=== PATIENT | female | born 1985 | race African-American/Black ===

== ENCOUNTER 2016-09-24 03:11 | Emergency (ER) | payer BC ==
[2016-09-24 03:19] VITALS: RESP 18
[2016-09-24] MEDS ORDERED: methylPREDNISolone SOD SUCCI 125 MG/2 ML VIAL IV STA (03:25)
[2016-09-24] MEDS ORDERED: diphenhydrAMINE 50 MG/ML 1 ML VIAL IVP STA ×2 (03:25→03:26)
[2016-09-24] MEDS ORDERED: FAMOTIDINE 20 MG/2 ML VIAL IV STA (03:25)
[2016-09-24] MEDS ORDERED: EPINEPHrine 1 MG/ML 1 ML AMP SQ STA (03:25)
--- NOTE | 2016-09-24 04:03 | ED ---
Allergic Reaction HPI - General Chief complaint: Allergic Reaction Stated complaint: Alergic reaction Time Seen by Provider: 09/24/16 03:21 Source: patient, RN notes reviewed, old records reviewed Mode of arrival: ambulatory Limitations: no limitations - History of Present Illness Initial Comments: This is a pleasant 31-year-old female presenting to the emergency department with chief complaint of ALLERGIC reaction. Patient reports that she's been seen and treated for ALLERGIC reactions for the past few days, [facility]. Patient reports that she's not sure what it is that she is down at her visits from laundry detergent. She reports that she was washing her clothes and had a bit of the laundry detergent touch her lip. She reports that this time her lower lip started to swell. Patient denies any difficulty breathing or swelling of the tongue. She denies any nausea or vomiting. Patient reports that she took 50 mg of Benadryl 2 hours prior to arriving. She also took Pepcid. She is currently on steroids. - Related Data Home Medications Medication Instructions Recorded Confirmed FLUoxetine HCL [PROzac] 20 mg PO DAILY 09/28/16 09/28/16 traZODone HCL 50 - 100 mg PO HS 09/28/16 09/28/16 Previous Rx's Medication Instructions Recorded EPINEPHrine (Auto Inject) [Epipen] 0.3 mg IM ONCE PRN #2 syringe 09/24/16 Allergies Allergy/AdvReac Type Severity Reaction Status Date / Time shellfish derived [Shellfish] Allergy Severe Rash/Hives Verified 09/29/16 08:39 Review of Systems ROS Statement: Those systems with pertinent positive or pertinent negative responses have been documented in the HPI. ROS Other: All systems not noted in ROS Statement are negative. Past Medical History Past Medical History: No Reported History History of Any Multi-Drug Resistant Organisms: None Reported Past Surgical History: No Surgical Hx Reported Past Psychological History: Depression Smoking Status: Never smoker Past Alcohol Use History: None Reported Past Drug Use History: None Reported General Exam - General Exam Comments Initial Comments: This is a pleasant 31-year-old female. No acute distress. Limitations: no limitations General appearance: alert, in no apparent distress Head exam: Present: atraumatic, normocephalic, normal inspection Eye exam: Present: normal appearance, PERRL, EOMI. Absent: scleral icterus, conjunctival injection, periorbital swelling ENT exam: Present: normal exam, mucous membranes moist, other (Patient has significant swelling of the lower lip.) Neck exam: Present: normal inspection. Absent: tenderness, meningismus, lymphadenopathy Respiratory exam: Present: normal lung sounds bilaterally. Absent: respiratory distress, wheezes, rales, rhonchi, stridor Cardiovascular Exam: Present: regular rate, normal rhythm, normal heart sounds. Absent: systolic murmur, diastolic murmur, rubs, gallop, clicks GI/Abdominal exam: Present: soft, normal bowel sounds. Absent: distended, tenderness, guarding, rebound, rigid Extremities exam: Present: normal inspection, full ROM, normal capillary refill. Absent: tenderness, pedal edema, joint swelling, calf tenderness Back exam: Present: normal inspection Neurological exam: Present: alert, oriented X3, CN II-XII intact Psychiatric exam: Present: normal affect, normal mood Skin exam: Present: warm, dry, intact, normal color. Absent: rash Course Vital Signs 09/24/16 09/24/16 03:15 04:44 Temperature 97.9 F 98.8 F Pulse Rate 66 63 Respiratory 18 18 Rate Blood Pressure 142/72 O2 Sat by Pulse 99 99 Oximetry Medical Decision Making - Medical Decision Making This is a pleasant 31-year-old female presenting to the emergency department with chief complaint of ALLERGIC reaction. Patient reports that she's been seen and treated for ALLERGIC reactions for the past few days, [facility]. Patient reports that she's not sure what it is that she is down at her visits from laundry detergent. She reports that she was washing her clothes and had a bit of the laundry detergent touch her lip. She reports that this time her lower lip started to swell. Patient denies any difficulty breathing or swelling of the tongue. Patient given IV solumedrol, pepcid, benadryl, and SQ epinephrine. Patient was reevaluated and feels better, lip swellling is diminished. Patient will be discharged with prednisone 20 mg, advised to stop using the taper pack at this time. Also encouraged continue benaryl and pepcid from previous Rx's. Patient also writen for an epi pen. Disposition Clinical Impression: Allergic reaction Disposition: HOME SELF-CARE Condition: Good Instructions: Anaphylaxis (ED) Additional Instructions: Patient denies to continue the prednisone for the next 5 days. Continue your Pepcid and Benadryl every 6 hours. Follow-up with her primary care provider tomorrow. Return to emergency department if any alarming signs or symptoms occur. Prescriptions: EPINEPHrine (Auto Inject) [Epipen] 0.3 mg IM ONCE PRN #2 syringe PRN Reason: Anaphylaxis Referrals: Queenie Hendrickson DO [Primary Care Provider] - 1-2 days Time of Disposition: 04:36
[2016-09-24 04:54] VITALS: BP 142/72; PULSE 63; TEMP 98.8
== END 2016-09-24 04:54 | disposition home or self-care (01) ==
LOC: EC 03:11
DX: T78.40XA Allergy, unspecified, initial encounter (principal); F32.9 Major depressive disorder, single episode, unspecified; Z79.899 Other long term (current) drug therapy
CPT/HCPCS: 99283; 96374; 96375 ×2; 96372; J0171; J1200; J2930

== ENCOUNTER 2016-09-28 16:32 | Inpatient (IN) | payer BC ==
[2016-09-28] MEDS ORDERED: SODIUM CHLORIDE 0.9% 1,000 ML IV STA (17:01)
[2016-09-28] MEDS ORDERED: ONDANSETRON 4 MG/2 ML VIAL IVP STA (17:06)
[2016-09-28] MEDS ORDERED: MORPHINE SULFATE 4 MG/ML SYRINGE IVP STA ×2 (17:06→18:19)
[2016-09-28] MEDS ORDERED: ACETAMINOPHEN TAB 500 MG TAB PO STA (17:09)
--- NOTE | 2016-09-28 17:09 | ED ---
Abdominal Pain HPI - General Chief Complaint: Abdominal Pain Stated Complaint: Left Side Pain Time Seen by Provider: 09/28/16 17:01 Source: patient, RN notes reviewed Mode of arrival: ambulatory Limitations: no limitations - History of Present Illness Initial Comments: 31-year-old female presents emergency Department with chief complaint of abdominal pain, flank pain. Patient states started a few hours ago with sudden onset left flank pain. Patient had nausea and vomiting. Patient states never any pain at this the past this extent but states that she's had similar pain when she had a UTI. Patient has no history of pyelonephritis or kidney stones. Patient denies any diarrhea, constipation, chest pain or shortness of breath. She has fever or chills. Patient states she has some dysuria and urinary frequency. Patient has NO KNOWN DRUG ALLERGIES. Denies any abdominal surgeries. - Related Data Home Medications Medication Instructions Recorded Confirmed FLUoxetine HCL [PROzac] 20 mg PO DAILY 09/28/16 09/28/16 traZODone HCL 50 - 100 mg PO HS 09/28/16 09/28/16 Previous Rx's Medication Instructions Recorded EPINEPHrine (Auto Inject) [Epipen] 0.3 mg IM ONCE PRN #2 syringe 09/24/16 predniSONE 20 mg PO BID #10 tab 09/24/16 Allergies Allergy/AdvReac Type Severity Reaction Status Date / Time No Known Allergies Allergy Verified 09/28/16 16:50 Review of Systems ROS Statement: Those systems with pertinent positive or pertinent negative responses have been documented in the HPI. ROS Other: All systems not noted in ROS Statement are negative. Past Medical History Past Medical History: No Reported History History of Any Multi-Drug Resistant Organisms: None Reported Past Surgical History: No Surgical Hx Reported Past Psychological History: Depression Smoking Status: Never smoker Past Alcohol Use History: None Reported Past Drug Use History: None Reported General Exam Limitations: no limitations General appearance: alert, in no apparent distress Head exam: Present: atraumatic, normocephalic, normal inspection Eye exam: Present: normal appearance, PERRL, EOMI. Absent: scleral icterus, conjunctival injection, periorbital swelling Neck exam: Present: normal inspection. Absent: tenderness, meningismus, lymphadenopathy Respiratory exam: Present: normal lung sounds bilaterally. Absent: respiratory distress, wheezes, rales, rhonchi, stridor Cardiovascular Exam: Present: regular rate, normal rhythm, normal heart sounds. Absent: systolic murmur, diastolic murmur, rubs, gallop, clicks GI/Abdominal exam: Present: soft, normal bowel sounds. Absent: distended, tenderness, guarding, rebound, rigid Back exam: Present: CVA tenderness (L). Absent: CVA tenderness (R) Neurological exam: Present: alert, oriented X3, CN II-XII intact Skin exam: Present: warm, dry, intact, normal color. Absent: rash Course Vital Signs 09/28/16 16:44 Temperature 100.4 F H Pulse Rate 88 Respiratory 18 Rate Blood Pressure 159/111 O2 Sat by Pulse 95 Oximetry Medical Decision Making - Medical Decision Making 31-year-old for left flank pain. patient continues to have pain is uncontrolled. patient states it is worsened when she urinates. ct shows some fat stranding around the left kidney was slightly cysts with pyelonephritis. patient recently started on rocephin at this time admitted to the hospital for further antibiotics. - Lab Data Result diagrams: 09/28/16 14:10 09/28/16 14:10 Lab Results 09/28/16 09/28/16 09/28/16 Range/Units 14:10 14:10 14:10 WBC 13.4 H (3.8-10.6) k/uL RBC 4.34 (3.80-5.40) m/uL Hgb 11.6 (11.4-16.0) gm/dL Hct 36.1 (34.0-46.0) % MCV 83.2 (80.0-100.0) fL MCH 26.8 (25.0-35.0) pg MCHC 32.2 (31.0-37.0) g/dL RDW 14.5 (11.5-15.5) % Plt Count 318 (150-450) k/uL Neutrophils % 86 % Lymphocytes % 10 % Monocytes % 2 % Eosinophils % 2 % Basophils % 0 % Neutrophils # 11.5 H (1.3-7.7) k/uL Lymphocytes # 1.4 (1.0-4.8) k/uL Monocytes # 0.3 (0-1.0) k/uL Eosinophils # 0.2 (0-0.7) k/uL Basophils # 0.0 (0-0.2) k/uL Sodium 135 L (137-145) mmol/L Potassium 5.1 (3.5-5.1) mmol/L Chloride 103 (98-107) mmol/L Carbon Dioxide 23 (22-30) mmol/L Anion Gap 9 mmol/L BUN 13 (7-17) mg/dL Creatinine 0.84 (0.52-1.04) mg/dL Est GFR (MDRD) Af Amer >60 (>60 ml/min/1.73 sqM) Est GFR (MDRD) Non-Af >60 (>60 ml/min/1.73 sqM) Glucose 123 H (74-99) mg/dL Calcium 9.3 (8.4-10.2) mg/dL Total Bilirubin 0.9 (0.2-1.3) mg/dL AST 34 (14-36) U/L ALT 30 (9-52) U/L Alkaline Phosphatase 60 (38-126) U/L Total Protein 7.1 (6.3-8.2) g/dL Albumin 4.1 (3.5-5.0) g/dL Amylase 69 (30-110) U/L Lipase 154 (23-300) U/L Urine Color Urine Appearance (Clear) Urine pH (5.0-8.0) Ur Specific [place] (1.001-1.035) Urine Protein (Negative) Urine Glucose (UA) (Negative) Urine Ketones (Negative) Urine Blood (Negative) Urine Nitrite (Negative) Urine Bilirubin (Negative) Urine Urobilinogen (<2.0) mg/dL Ur Leukocyte Esterase (Negative) Urine RBC (0-5) /hpf Urine WBC (0-5) /hpf Ur Squamous Epith Cells (0-4) /hpf Urine Bacteria (None) /hpf Urine HCG, Qual Not Detected (Not Detectd) 09/28/16 Range/Units 14:10 WBC (3.8-10.6) k/uL RBC (3.80-5.40) m/uL Hgb (11.4-16.0) gm/dL Hct (34.0-46.0) % MCV (80.0-100.0) fL MCH (25.0-35.0) pg MCHC (31.0-37.0) g/dL RDW (11.5-15.5) % Plt Count (150-450) k/uL Neutrophils % % Lymphocytes % % Monocytes % % Eosinophils % % Basophils % % Neutrophils # (1.3-7.7) k/uL Lymphocytes # (1.0-4.8) k/uL Monocytes # (0-1.0) k/uL Eosinophils # (0-0.7) k/uL Basophils # (0-0.2) k/uL Sodium (137-145) mmol/L Potassium (3.5-5.1) mmol/L Chloride (98-107) mmol/L Carbon Dioxide (22-30) mmol/L Anion Gap mmol/L BUN (7-17) mg/dL Creatinine (0.52-1.04) mg/dL Est GFR (MDRD) Af Amer (>60 ml/min/1.73 sqM) Est GFR (MDRD) Non-Af (>60 ml/min/1.73 sqM) Glucose (74-99) mg/dL Calcium (8.4-10.2) mg/dL Total Bilirubin (0.2-1.3) mg/dL AST (14-36) U/L ALT (9-52) U/L Alkaline Phosphatase (38-126) U/L Total Protein (6.3-8.2) g/dL Albumin (3.5-5.0) g/dL Amylase (30-110) U/L Lipase (23-300) U/L Urine Color Light Yellow Urine Appearance Clear (Clear) Urine pH 8.0 (5.0-8.0) Ur Specific [place] 1.013 (1.001-1.035) Urine Protein Negative (Negative) Urine Glucose (UA) Negative (Negative) Urine Ketones Negative (Negative) Urine Blood Small H (Negative) Urine Nitrite Negative (Negative) Urine Bilirubin Negative (Negative) Urine Urobilinogen <2.0 (<2.0) mg/dL Ur Leukocyte Esterase Negative (Negative) Urine RBC 6 H (0-5) /hpf Urine WBC 1 (0-5) /hpf Ur Squamous Epith Cells 1 (0-4) /hpf Urine Bacteria Rare H (None) /hpf Urine HCG, Qual (Not Detectd) Disposition Clinical Impression: Pyelonephritis, Ovarian cyst, Umbilical hernia Disposition: ADMITTED IP TO THIS HOSP Condition: Fair Referrals: Queenie Hendrickson DO [Primary Care Provider] - 1-2 days Time of Disposition: :01
[2016-09-28 17:27] LABS: Appearance,Urine Clear (Clear); Bacteria,Urine Rare /hpf; Bilirubin,Urine Negative (Negative); Glucose,Urine (UA) Negative (Negative); Ketones,Urine Negative (Negative); Leukocyte Esterase,Urine Negative (Negative); Nitrite,Urine Negative (Negative); Particle Count 4674; Protein,Urine Negative (Negative); RBC,Urine 6 /hpf (0-5); Specific Gravity,Urine 1.013 (1.001-1.035); Squamous Epithelial Cell,Urine 1 /hpf (0-4); UA Billing (MACRO vs. MICRO) MICRO; Urobilinogen,Urine <2.0 mg/dL (<2.0); WBC,Urine 1 /hpf (0-5)
[2016-09-28 17:28] LABS: Basophils % (A) 0 %; CH 26.4; CHCM 31.9; Eosinophils # (A) 0.2 k/uL (0-0.7); Eosinophils % (A) 2 %; HCT 36.1 % (34.0-46.0); HDW 2.63; HGB 11.6 gm/dL (11.4-16.0); Luc # (Auto) 0.05; Luc % (Auto) 0; Lymphocytes # (A) 1.4 k/uL (1.0-4.8); Lymphocytes % (A) 10 %; MCH 26.8 pg (25.0-35.0); MCHC 32.2 g/dL (31.0-37.0); MCV 83.2 fL (80.0-100.0); Mean Platelet Volume 7.1; Monocytes # (A) 0.3 k/uL (0-1.0); Monocytes % (A) 2 %; Neutrophils # (A) 11.5 k/uL (1.3-7.7); Neutrophils % (A) 86 %; RBC 4.34 m/uL (3.80-5.40); RDW 14.5 % (11.5-15.5); WBC 13.4 k/uL (3.8-10.6); WBC (Perox) 14.36
[2016-09-28 17:33] LABS: ALT 30 U/L (9-52); AST 34 U/L (14-36); Alkaline Phosphatase 60 U/L (38-126); Amylase 69 U/L (30-110); Anion Gap 9 mmol/L; Blood Urea Nitrogen 13 mg/dL (7-17); Calcium 9.3 mg/dL (8.4-10.2); Carbon Dioxide 23 mmol/L (22-30); Chloride 103 mmol/L (98-107); Glucose 123 mg/dL (74-99); Non-African American GFR(MDRD) >60 (>60 ml/min/1.73 sqM); Sodium 135 mmol/L (137-145); Total Bilirubin 0.9 mg/dL (0.2-1.3); Total Protein 7.1 g/dL (6.3-8.2)
--- NOTE | 2016-09-28 17:46 | XR ---
EXAMINATION TYPE: XR KUB DATE OF EXAM: 09/28/2016 5:39 PM CLINICAL DATA: 31 year-old female left-sided abdominal pain, [facility] COMPARISON: None FINDINGS: Lung bases are clear. No evidence for free intraperitoneal air. No dilated small bowel or air-fluid levels. Scattered air and stool seen throughout the colon extendi ng distally into the rectum. Mild to moderate scattered stool. No suspicious calcifications identified. IMPRESSION: Mild to moderate stool. No evidence of bowel obstruction or free intraperitoneal air.
[2016-09-28 18:25] LABS: Potassium 5.1 mmol/L (3.5-5.1)
--- NOTE | 2016-09-28 18:50 | CT ---
EXAMINATION TYPE: CT abdomen pelvis wo con DATE OF EXAM: 09/28/2016 6:30 PM COMPARISON: Radiograph same day HISTORY: 31-year-old female Patient complains of left flank pain. CT DLP: 1077.7 mGycm. Automated exposure control for dose reduction was used. TECHNIQUE: Contiguous axial scanning of the abdomen and pelvis without IV contrast. Coronal and sagit yuliya reconstructions performed. FINDINGS: The heart is normal size without pericardial effusion. There is a small 1.8 cm lipoma along the right edna of the diaphragm. Lung bases clear without pleural effusion. Nonspecific 1.1 cm hypodensity right hepatic dome. This is too small for accurate CT characterization , likely cyst. Gallbladder, adrenal glands, right kidney, spleen, and pancreas show no gross abnormality by noncontr ast CT. Tiny anterior splenule. There is mild asymmetric perinephric fat stranding on the left. Minimal pelvicaliectasis. No renal or urinary tract calculus seen. No mesenteric or retroperitoneal lymphadenopathy. No dilated small bowel, free fluid, or free air. Normal appendix. Tiny omental fat-containing supraumbilical hernia measuring 1.2 cm and the abdominal wall defect measuring 5 to 6 mm. There may be some minimal inflammation in this region. Mild stool burden. Left hemicolonic diverticulosis. No pericolonic inflammatory change. Bladder partially urine distended. Uterus is visualized. The left ovary appears asymmetrically larger than the right measuring approximately 4.4 x 2.8 x 2.3 cm, mildly enlarged with a volume of 28 mL. N o abnormal fluid collection in the pelvis. Likely prominent bilateral iliac chain lymph nodes are dem onstrated. Bones: No osseous destructive process. IMPRESSION: 1. Mild perinephric fat stranding on the left. No nephrolithiasis is seen. Correlate for possible et iologies including infection/pyelonephritis or reactive change to a recently passed stone. 2. Mildly enlarged left ovary with an estimated volume of [address] If there are clin ical signs of ovarian pathology, pelvic ultrasound can be performed. 3. Small fat-containing supraumbilical hernia measuring 1.2 cm. This has a narrow neck and there may be mild inflammation here. Correlate for any focal pain. 4. Incidental left hemicolonic diverticulosis.
[2016-09-28] MEDS ORDERED: KETOROLAC 30 MG/ML 1 ML VIAL IVP STA (18:59)
[2016-09-28] MEDS ORDERED: IBUPROFEN 400 MG TAB PO PRN (19:01)
[2016-09-28] MEDS ORDERED: NALOXONE 0.4 MG/ML 1 ML VIAL IV PRN (19:01)
[2016-09-28] MEDS ORDERED: ONDANSETRON 4 MG/2 ML VIAL IVP PRN (19:01)
[2016-09-28] MEDS ORDERED: HYDROmorphone 1 MG/ML 1 ML SYRINGE IV PRN (19:01)
[2016-09-28] MEDS ORDERED: HYDROcodone/APAP 5-325MG 1 EACH TAB PO PRN (19:01)
[2016-09-28] MEDS: SODIUM CHLORIDE 0.9% 1,000 ML IV SCH (19:30)
[2016-09-28 20:06] VITALS: BMI 44.9
[2016-09-29] MEDS: ACETAMINOPHEN TAB 325 MG TAB PO PRN ×2 (00:26→12:10)
[2016-09-29] MEDS: SODIUM CHLORIDE 0.9% 1,000 ML IV SCH ×2 (05:07→14:17)
[2016-09-29 09:56] LABS: ALT 28 U/L (9-52); AST 19 U/L (14-36); Alkaline Phosphatase 51 U/L (38-126); Anion Gap 8 mmol/L; Blood Urea Nitrogen 11 mg/dL (7-17); Calcium 8.5 mg/dL (8.4-10.2); Carbon Dioxide 24 mmol/L (22-30); Chloride 104 mmol/L (98-107); Glucose 138 mg/dL (74-99); Non-African American GFR(MDRD) >60 (>60 ml/min/1.73 sqM); Potassium 3.7 mmol/L (3.5-5.1); Sodium 136 mmol/L (137-145); Total Bilirubin 0.6 mg/dL (0.2-1.3); Total Protein 5.9 g/dL (6.3-8.2)
[2016-09-29 10:25] LABS: Basophils % (A) 0 %; CH 26.3; CHCM 30.8; Eosinophils % (A) 0 %; HCT 33.1 % (34.0-46.0); HDW 2.53; Hypochromasia Slight; Luc # (Auto) 0.17; Luc % (Auto) 2; Lymphocytes # (A) 2.3 k/uL (1.0-4.8); Lymphocytes % (A) 22 %; MCH 26.6 pg (25.0-35.0); MCHC 31.1 g/dL (31.0-37.0); MCV 85.7 fL (80.0-100.0); Mean Platelet Volume 7.2; Monocytes # (A) 0.4 k/uL (0-1.0); Monocytes % (A) 4 %; Neutrophils # (A) 7.2 k/uL (1.3-7.7); Neutrophils % (A) 71 %; RBC 3.86 m/uL (3.80-5.40); RDW 14.4 % (11.5-15.5); WBC 10.1 k/uL (3.8-10.6); WBC (Perox) 10.14
[2016-09-29 10:28] LABS: HGB 10.3 gm/dL (11.4-16.0)
[2016-09-29] MEDS: FLUoxetine HCL 20 MG CAP PO SCH (10:30)
--- NOTE | 2016-09-29 11:55 | P.HPIM ---
History of Present Illness H&P Date: 09/29/16 Chief Complaint: Left flank and abdominal pain This is a 31-year-old female, patient of [facility]. She has a known past medical history of depression. She presents to the hospital with complaints of left flank pain that radiated down into the left groin. Patient reports she was a good state of health went to pentecostalism. Was taking a nap in the afternoon. When she woke up from the nap she was having severe flank and abdominal pain. She tried to have a bowel movement. Initially she thought she was constipated. Last bowel movement was normal on Thursday. She came into the emergency room for further evaluation. She had a computed tomography scan of the abdomen and pelvis showing mild perinephric fat stranding on the left. No nephrolithiasis and to correlate for possible pyelonephritis or a reactive change to a recently passed stone. Mildly enlarged left ovary with an estimated volume of 28 mL. Small fat-containing supraumbilical hernia measuring 1.2 cm. An incidental left hemicolonic diverticulosis. Patient reports initially having some burning with urination. She did not see any blood in her urine. The burning with urination has now resolved. Her flank and abdominal pain are completely gone. Patient did have a low-grade temp of 100.4 and a white count of 13.4 on admission. Urinalysis showed rare bacteria and a small amount of blood. Patient reports feeling warm. Has no history of kidney stones. A KUB did show mild to moderate stool. She completed prednisone yesterday for possible ALLERGIC reaction to crab. Patient's denies any chest pain or shortness of breath. Denies any nausea or vomiting. Her symptoms have improved. Patient was started on IV Rocephin for possible pyelonephritis and continued with IV fluids. Review of Systems Please refer to HPI otherwise unremarkable Patient does report normal menstrual cycle. But does notice that periods are little heavier than usual. Past Medical History Past Medical History: No Reported History History of Any Multi-Drug Resistant Organisms: None Reported Past Surgical History: No Surgical Hx Reported Past Psychological History: Depression Smoking Status: Never smoker Past Alcohol Use History: None Reported Past Drug Use History: None Reported - Past Family History Father Family Medical History: Hypertension Medications and Allergies Home Medications Medication Instructions Recorded Confirmed Type FLUoxetine HCL [PROzac] 20 mg PO DAILY 09/28/16 09/28/16 History traZODone HCL 50 - 100 mg PO HS 09/28/16 09/28/16 History Allergies Allergy/AdvReac Type Severity Reaction Status Date / Time shellfish derived [Shellfish] Allergy Severe Rash/Hives Verified 09/29/16 08:39 Physical Exam Vitals: Vital Signs Temp Pulse Pulse Resp BP BP Pulse Ox 09/29/16 08:05 98.0 F 62 20 135/78 98 09/29/16 00:00 82 20 09/28/16 23:00 97.9 F 82 20 126/76 100 09/28/16 19:25 97.9 F 67 18 167/94 97 09/28/16 16:44 100.4 F H 88 18 159/111 95 Intake and Output 09/28/16 09/29/16 09/29/16 22:59 06:59 14:59 Intake Total 240 Balance 240 Intake: Oral 240 Other: Voiding Method Toilet Toilet # Voids 1 Weight 122.47 kg 122.47 kg Head normocephalic Neck supple Lungs clear to auscultation bilaterally no wheezing or crackles Heart regular rate and rhythm S1-S2, no rub or gallop Abdomen is soft nontender nondistended positive bowel sounds no hepatosplenomegaly Extremities no edema Neuro alert and orientated to 3 Results CBC & Chem 7: 09/29/16 09:29 09/29/16 09:29 Labs: Abnormal Lab Results - Last 24 Hours (Table) 09/28/16 09/28/16 09/28/16 Range/Units 14:10 14:10 14:10 WBC 13.4 H (3.8-10.6) k/uL Hgb (11.4-16.0) gm/dL Hct (34.0-46.0) % Neutrophils # 11.5 H (1.3-7.7) k/uL Sodium 135 L (137-145) mmol/L Glucose 123 H (74-99) mg/dL Total Protein (6.3-8.2) g/dL Albumin (3.5-5.0) g/dL Urine Blood Small H (Negative) Urine RBC 6 H (0-5) /hpf Urine Bacteria Rare H (None) /hpf 09/29/16 09/29/16 Range/Units 09:29 09:29 WBC (3.8-10.6) k/uL Hgb 10.3 L (11.4-16.0) gm/dL Hct 33.1 L (34.0-46.0) % Neutrophils # (1.3-7.7) k/uL Sodium 136 L (137-145) mmol/L Glucose 138 H (74-99) mg/dL Total Protein 5.9 L (6.3-8.2) g/dL Albumin 3.2 L (3.5-5.0) g/dL Urine Blood (Negative) Urine RBC (0-5) /hpf Urine Bacteria (None) /hpf Microbiology - Last 24 Hours (Table) 09/28/16 14:10 Urine Culture - Preliminary Urine,Voided Thrombosis Risk Factor Assmnt - Choose All That Apply Each Factor Represents 1 point: Obesity (BMI >25) Other Risk Factors: No Other congenital or acquired thrombophilia - If yes, enter type in comment: No Thrombosis Risk Factor Assessment Total Risk Factor Score: 1 Thrombosis Risk Factor Assessment Level: Low Risk Assessment and Plan Plan: 1. Left flank pain and abdominal pain now resolved. Possibly related to recently passed kidney stone or pyelonephritis. Pain in symptoms now resolved 2. Possible left pyelonephritis: Continue with Rocephin await urine culture. Continue with IV fluids 3. Constipation we'll give Colace and 1 dose of lactulose 4. Leukocytosis may be related to infection but also possibly related to the prednisone treatment she just finished for an ALLERGIC reaction to crab 5. Depression resume her Prozac and trazodone GI prophylaxis Pepcid and DVT prophylaxis subcu heparin Time with Patient: Greater than 30 (Greater than 50% of the total time spent in counseling and coordination of care.I performed an examination of the patient and discussed their management with the physician Train System Operator. I have reviewed the Physician Train System Operator's notes and agree with the documented findings and plan of care)
[2016-09-29] MEDS ORDERED: LACTULOSE 20 GM/30 ML CUP PO ONE (12:00)
[2016-09-29] MEDS: DOCUSATE 100 MG CAP PO SCH ×2 (12:08→20:26)
--- NOTE | 2016-09-29 15:17 | US ---
EXAMINATION TYPE: US transvaginal DATE OF EXAM: 09/29/2016 3:06 PM COMPARISON: Previous CT scan of the abdomen and pelvis dated 09/28/2016. CLINICAL HISTORY: enlarged left ovary on CT scan. Follow up abnormal left ovary from recent CT, gravi da 0 TECHNIQUE: Transvaginal (TV) and Transabdominal (TA) Date of LMP: 3 weeks ago EXAM MEASUREMENTS: Uterus: 6.5 x 3.7 x 4.0 cm Endometrial Stripe: 1.4 cm Right Ovary: 3.5 x 2.6 x 2.6 cm Left Ovary: 3.9 x 2.8 x 3.0 cm 1. Uterus: retroverted, slightly heterogeneous 2. Endometrium: measures in upper limits of normal at 1.4cm with increases vascularity, fluid seen i n endocervical canal 3. Right Ovary: 2.7 x 1.9 x 2.2cm cystic area 4. Left Ovary: 2.2 x 2.3 x 2.4cm cystic area 5. Bilateral Adnexa: wnl 6. Posterior cul-de-sac: wnl IMPRESSION: COMPLEX LEFT OVARIAN CYST. SHORT-TERM FOLLOW-UP FOLLOWING THE PATIENT'S NEXT NORMAL MENSTRUAL PERIOD WOULD BE SUGGESTED.
[2016-09-29] MEDS: HEPARIN SODIUM,PORCINE 5,000 UNIT/ML 1 ML VIAL SQ SCH (20:26)
[2016-09-29] MEDS ORDERED: traZODone HCL 50 MG TAB PO SCH (21:00)
--- NOTE | 2016-09-29 22:30 | CONS ---
DATE OF CONSULTATION: 09/29/2016 REASON FOR CONSULTATION: Possible kidney stone. The patient is a 31-year-old female admitted through the emergency room yesterday evening for evaluation of severe left flank and left lower quadrant pain. The patient said that she developed nausea associated with severe left flank pain and urgency to void yesterday afternoon. The pain and nausea worsened. She was seen in the emergency room late in the afternoon and noted to have a white blood count of 13,400. Urinalysis showed 6 red cells, 1 white cell, 1 squamous cell and a small amount of hemoglobin. CT scan of the abdomen and pelvis without IV contrast showed no evidence of kidney stones or hydronephrosis. There was some mild left perinephric stranding of uncertain significance. The patient was given IV Rocephin and admitted with the possible diagnosis of pyelonephritis. She says that she became more comfortable yesterday evening and has had no further severe flank pain or abdominal pain. She did have some mild nausea earlier today, but this has resolved. Patient no longer has the urgency to void. Patient has had only one urinary tract infection in the past. Patient's past medical history is significant in regard to depression, which has been treated with Prozac. She did develop an allergic reaction apparently to a crab salad one week ago and was seen in the emergency room due to facial swelling and hives. She was treated with prednisone, Pepcid and Benadryl. She has NO ALLERGIES TO MEDICATIONS. REVIEW OF SYSTEMS: Significant mainly in regard to the above. Physical exam reveals an obese 31-year-old black female who is alert and oriented. The patient is afebrile. Blood pressure 152/96. HEENT: Moderate acne. No supraclavicular or cervical adenopathy. CHEST: Breathing is unlabored. ABDOMEN: Obese. No hepatosplenomegaly. No tenderness to palpation in the left upper quadrant, left flank or left lower quadrant. I personally reviewed the patient's CT scan of the abdomen and pelvis and agree with the radiologist's findings of no evidence of urolithiasis or hydronephrosis. IMPRESSION: Recent left flank pain. The patient's history is consistent with passage of a stone which could have occurred even before she presented to the emergency room. This would explain her nausea and urgency which largely resolved within a few hours. Her urinalysis does not really suggest pyelonephritis. RECOMMENDATION: From my standpoint, the patient could be discharged and followed as an outpatient. Her urine culture should be finalized tomorrow if it is no growth, and if it is, then no further antibiotic treatment would be necessary. Thank you for allowing me to participate in the care of this patient. BRANDON
[2016-09-30] MEDS: SODIUM CHLORIDE 0.9% 1,000 ML IV SCH ×2 (00:15→09:14)
[2016-09-30 07:27] LABS: Basophils % (A) 0 %; CHCM 30.9; Eosinophils # (A) 0.1 k/uL (0-0.7); Eosinophils % (A) 1 %; HCT 32.4 % (34.0-46.0); HDW 2.57; HGB 10.3 gm/dL (11.4-16.0); Hypochromasia Slight; Luc # (Auto) 0.15; Luc % (Auto) 2; Lymphocytes # (A) 3.4 k/uL (1.0-4.8); Lymphocytes % (A) 37 %; MCH 26.7 pg (25.0-35.0); MCHC 31.7 g/dL (31.0-37.0); MCV 84.5 fL (80.0-100.0); Mean Platelet Volume 6.8; Monocytes # (A) 0.4 k/uL (0-1.0); Monocytes % (A) 4 %; Neutrophils # (A) 5.2 k/uL (1.3-7.7); Neutrophils % (A) 56 %; RBC 3.84 m/uL (3.80-5.40); RDW 14.6 % (11.5-15.5); WBC 9.3 k/uL (3.8-10.6); WBC (Perox) 9.42
[2016-09-30 07:48] LABS: ALT 27 U/L (9-52); AST 17 U/L (14-36); Alkaline Phosphatase 56 U/L (38-126); Anion Gap 8 mmol/L; Blood Urea Nitrogen 10 mg/dL (7-17); Calcium 8.5 mg/dL (8.4-10.2); Carbon Dioxide 23 mmol/L (22-30); Chloride 105 mmol/L (98-107); Glucose 81 mg/dL (74-99); Non-African American GFR(MDRD) >60 (>60 ml/min/1.73 sqM); Potassium 4.3 mmol/L (3.5-5.1); Sodium 136 mmol/L (137-145); Total Bilirubin 0.5 mg/dL (0.2-1.3)
[2016-09-30 08:34] VITALS: RESP 20
[2016-09-30] MEDS ORDERED: FAMOTIDINE 20 MG TAB PO SCH (09:00)
[2016-09-30] MEDS: FLUoxetine HCL 20 MG CAP PO SCH (09:16)
[2016-09-30] MEDS: DOCUSATE 100 MG CAP PO SCH (09:16)
[2016-09-30] MEDS: HEPARIN SODIUM,PORCINE 5,000 UNIT/ML 1 ML VIAL SQ SCH (09:16)
--- NOTE | 2016-09-30 17:11 | P.DS ---
Providers Date of admission: 09/28/16 19:03 Expected date of discharge: 09/30/16 Attending physician: Karan Murray Consults: 09/29/16 13:42 Consult Physician Routine Consulting Provider: Kenneth Bach Consult Reason/Comments: possibly passed kidney stone Do you want consulting provider notified?: Yes Primary care physician: [facility] Hospital Course: This is a 31-year-old female, patient of [facility]. She has a known past medical history of depression. She presents to the hospital with complaints of left flank pain that radiated down into the left groin. Patient reports she was a good state of health went to [employer]. Was taking a nap in the afternoon. When she woke up from the nap she was having severe flank and abdominal pain. Patient had a low-grade temp of 100.4 and a white count of 13.4 on admission. Urinalysis showed rare bacteria and a small amount of blood. Patient reports feeling warm. Has no history of kidney stones. A KUB did show mild to moderate stool. She completed prednisone yesterday for possible ALLERGIC reaction to crab. Patient's denies any chest pain or shortness of breath. Denies any nausea or vomiting. Her symptoms have improved. Patient was started on IV Rocephin for possible pyelonephritis and continued with IV fluids. Diagnoses on discharge 1. Left flank pain and abdominal pain now resolved. Possibly related to recently passed kidney stone. Pain and symptoms now resolved 2. Possible left pyelonephritis: Received IV Rocephin urine culture positive for only 50 to 100,000 gram-negative bacilli patient received Rocephin and no need for further antibiotic as outpatient 3. Constipation we'll give Colace and 1 dose of lactulose 4. Leukocytosis may be related to infection but also possibly related to the prednisone treatment she just finished for an ALLERGIC reaction to crab 5. Depression resume her Prozac and trazodone 6. Evidence of complex cyst on the left ovary recommendation for recheck of pelvic ultrasound in the next few weeks, and possible gynecology referral if needed Follow-up with primary care physician at [facility] within one week Patient Condition at Discharge: Fair Plan - Discharge Summary Discharge Medication List EPINEPHrine (Auto Inject) [Epipen] 0.3 mg IM ONCE PRN #2 syringe 09/24/16 [Rx] FLUoxetine HCL [PROzac] 20 mg PO DAILY 09/28/16 [History] traZODone HCL 50 - 100 mg PO HS 09/28/16 [History] Follow up Appointment(s)/Referral(s): Queenie Hendrickson DO [Primary Care Provider] - 1-2 days
[2016-09-30 18:01] VITALS: BP 129/69; PULSE 81; TEMP 99.4
== END 2016-09-30 18:53 | disposition home or self-care (01) | DRG 690 ==
LOC: EC 16:32 → 6PED 19:03
PROVIDERS: ADMIT Internal Medicine; ATTEND Internal Medicine
DX: N12 Tubulo-interstitial nephritis, not specified as acute or chronic (principal); F32.9 Major depressive disorder, single episode, unspecified; K59.00 Constipation, unspecified; N83.209 Unspecified ovarian cyst, unspecified side; K42.9 Umbilical hernia without obstruction or gangrene; Z91.013 Allergy to seafood; K57.30 Diverticulosis of large intestine without perforation or abscess without bleeding; Z87.440 Personal history of urinary (tract) infections; Z79.52 Long term (current) use of systemic steroids; Z79.899 Other long term (current) drug therapy
CPT/HCPCS: 36415; 74000; 74176; 76830; 80053; 81001; 81025; 82150; 83690; 85025; 87040; 87077; 87086; 87186; 96361; 96374; 96375; 96376; 99285

== ENCOUNTER 2018-07-06 09:40 | Emergency (ER) | payer BC ==
[2018-07-06] MEDS ORDERED: diphenhydrAMINE 50 MG/ML 1 ML VIAL IVP STA (10:23)
[2018-07-06] MEDS ORDERED: PROMETHAZINE INJ 25 MG in SODIUM CHLORIDE 0.9% 50 ML IVPB STA (10:23)
--- NOTE | 2018-07-06 10:27 | ED ---
General Adult HPI - General Chief complaint: Headache Stated complaint: migraine Time Seen by Provider: 07/06/18 09:40 Source: patient, RN notes reviewed Mode of arrival: ambulatory Limitations: no limitations - History of Present Illness Initial comments: This is a 33-year-old female presents emergency Department complaining of a headache. Patient states headache ongoing for one week now. Patient states as of yesterday got worse per patient states she's been monitoring her blood pressures been running a little high. Patient states the top number is been about 140 but the bottom of his been elevated as high as 120. Patient denies any blurred vision. Patient denies any numbness weakness. Patient states she thinks she has a little shortness of breath. She denies any chest pain. Patient denies any palpitations. Patient denies any recent fever chills or cough. Patient denies any swelling to the legs or calf tenderness. Patient states she is on control. Patient denies abdominal pain patient denies nausea vomiting diarrhea. Patient denies any sweating episodes. Patient states she's never been seen for headaches in the past. Patient states she has had similar headaches. - Related Data Home Medications Medication Instructions Recorded Confirmed Ascorbic Acid [Vitamin C] 500 mg PO DAILY 07/06/18 07/06/18 Aspirin/Acetaminophen/Caffeine 2 tab PO BID PRN 07/06/18 07/06/18 [Excedrin Migraine Caplet] Cholecalciferol [Vitamin D3] 1,000 unit PO DAILY 07/06/18 07/06/18 Citalopram Hydrobromide [CeleXA] 40 mg PO DAILY 07/06/18 07/06/18 Norgestimate-Ethinyl Estradiol 1 tab PO DAILY 07/06/18 07/06/18 [Sprintec 28 Day Tablet] Vitamin A 8,000 unit PO DAILY 07/06/18 07/06/18 Vitamin E 1,000 unit PO DAILY 07/06/18 07/06/18 Allergies Allergy/AdvReac Type Severity Reaction Status Date / Time shellfish derived [Shellfish] Allergy Severe Rash/Hives Verified 07/06/18 10:05 Review of Systems ROS Statement: Those systems with pertinent positive or pertinent negative responses have been documented in the HPI. ROS Other: All systems not noted in ROS Statement are negative. Past Medical History Past Medical History: No Reported History History of Any Multi-Drug Resistant Organisms: None Reported Past Surgical History: No Surgical Hx Reported Past Psychological History: Depression Smoking Status: Never smoker Past Alcohol Use History: None Reported Past Drug Use History: None Reported - Past Family History Father Family Medical History: Hypertension General Exam - General Exam Comments Initial Comments: GENERAL: Patient is well-developed and well-nourished. Patient is nontoxic and well- hydrated and is in mild distress. ENT: Neck is soft and supple. No significant lymphadenopathy is noted. Oropharynx is clear. Moist mucous membranes. Neck has full range of motion without eliciting any pain. EYES: The sclera were anicteric and conjunctiva were pink and moist. Extraocular movements were intact and pupils were equal round and reactive to light. Eyelids were unremarkable. PULMONARY: Unlabored respirations. Good breath sounds bilaterally. No audible rales rhonchi or wheezing was noted. CARDIOVASCULAR: There is a regular rate and rhythm without any murmurs gallops or rubs. ABDOMEN: Soft and nontender with normal bowel sounds. SKIN: Skin is clear with no lesions or rashes and otherwise unremarkable. NEUROLOGIC: Patient is alert and oriented x3. Cranial nerves II through XII are grossly intact. Motor and sensory are also intact. Normal speech, volume and content. Symmetrical smile. MUSCULOSKELETAL: Normal extremities with adequate strength and full range of motion. No lower extremity swelling or edema. No calf tenderness. LYMPHATICS: No significant lymphadenopathy is noted PSYCHIATRIC: Normal psychiatric evaluation. Limitations: no limitations Course Vital Signs 07/06/18 07/06/18 09:41 12:05 Temperature 98.3 F Pulse Rate 89 76 Respiratory 18 20 Rate Blood Pressure 140/84 128/86 O2 Sat by Pulse 99 100 Oximetry Medical Decision Making - Medical Decision Making Patient's initial blood pressure was 140/84 Chest x-ray shows no acute abnormality. Patient computed tomography scan shows no acute normalities. All labwork was normal. Patient's headache had improved to a 1 out of 10. - Lab Data Result diagrams: 07/06/18 10:30 07/06/18 10:30 Lab Results 07/06/18 07/06/18 07/06/18 Range/Units 10:30 10:30 10:30 WBC 6.6 (3.8-10.6) k/uL RBC 4.50 (3.80-5.40) m/uL Hgb 12.7 (11.4-16.0) gm/dL Hct 38.1 (34.0-46.0) % MCV 84.6 (80.0-100.0) fL MCH 28.1 (25.0-35.0) pg MCHC 33.2 (31.0-37.0) g/dL RDW 14.1 (11.5-15.5) % Plt Count 271 (150-450) k/uL Neutrophils % 68 % Lymphocytes % 25 % Monocytes % 4 % Eosinophils % 2 % Basophils % 0 % Neutrophils # 4.4 (1.3-7.7) k/uL Lymphocytes # 1.7 (1.0-4.8) k/uL Monocytes # 0.3 (0-1.0) k/uL Eosinophils # 0.1 (0-0.7) k/uL Basophils # 0.0 (0-0.2) k/uL PT 9.7 (9.0-12.0) sec INR 0.9 (<1.2) APTT 22.4 (22.0-30.0) sec D-Dimer 0.42 (<0.60) mg/L FEU Sodium 138 (137-145) mmol/L Potassium 4.4 (3.5-5.1) mmol/L Chloride 105 (98-107) mmol/L Carbon Dioxide 25 (22-30) mmol/L Anion Gap 8 mmol/L BUN 11 (7-17) mg/dL Creatinine 0.71 (0.52-1.04) mg/dL Est GFR (CKD-EPI)AfAm >90 (>60 ml/min/1.73 sqM) Est GFR (CKD-EPI)NonAf >90 (>60 ml/min/1.73 sqM) Glucose 97 (74-99) mg/dL Calcium 9.5 (8.4-10.2) mg/dL Magnesium 1.8 (1.6-2.3) mg/dL Total Bilirubin 0.5 (0.2-1.3) mg/dL AST 28 (14-36) U/L ALT 32 (9-52) U/L Alkaline Phosphatase 62 (38-126) U/L Troponin I (0.000-0.034) ng/mL Total Protein 7.3 (6.3-8.2) g/dL Albumin 4.2 (3.5-5.0) g/dL 07/06/18 Range/Units 10:30 WBC (3.8-10.6) k/uL RBC (3.80-5.40) m/uL Hgb (11.4-16.0) gm/dL Hct (34.0-46.0) % MCV (80.0-100.0) fL MCH (25.0-35.0) pg MCHC (31.0-37.0) g/dL RDW (11.5-15.5) % Plt Count (150-450) k/uL Neutrophils % % Lymphocytes % % Monocytes % % Eosinophils % % Basophils % % Neutrophils # (1.3-7.7) k/uL Lymphocytes # (1.0-4.8) k/uL Monocytes # (0-1.0) k/uL Eosinophils # (0-0.7) k/uL Basophils # (0-0.2) k/uL PT (9.0-12.0) sec INR (<1.2) APTT (22.0-30.0) sec D-Dimer (<0.60) mg/L FEU Sodium (137-145) mmol/L Potassium (3.5-5.1) mmol/L Chloride (98-107) mmol/L Carbon Dioxide (22-30) mmol/L Anion Gap mmol/L BUN (7-17) mg/dL Creatinine (0.52-1.04) mg/dL Est GFR (CKD-EPI)AfAm (>60 ml/min/1.73 sqM) Est GFR (CKD-EPI)NonAf (>60 ml/min/1.73 sqM) Glucose (74-99) mg/dL Calcium (8.4-10.2) mg/dL Magnesium (1.6-2.3) mg/dL Total Bilirubin (0.2-1.3) mg/dL AST (14-36) U/L ALT (9-52) U/L Alkaline Phosphatase (38-126) U/L Troponin I <0.012 (0.000-0.034) ng/mL Total Protein (6.3-8.2) g/dL Albumin (3.5-5.0) g/dL Disposition Clinical Impression: Hypertension, Cephalgia Disposition: HOME SELF-CARE Instructions (If sedation given, give patient instructions): Acute Headache (ED ), Hypertension (ED) Additional Instructions: Patient should take her blood pressure before every meal and before bed and document her so that her physician can determine if she needs blood pressure medications. Is patient prescribed a controlled substance at d/c from ED?: No Referrals: Queenie Hendrickson DO [Primary Care Provider] - 1-2 days Time of Disposition: 12:15
[2018-07-06 10:56] LABS: ALT 32 U/L (9-52); AST 28 U/L (14-36); Albumin 4.2 g/dL (3.5-5.0); Alkaline Phosphatase 62 U/L (38-126); Anion Gap 8 mmol/L; Blood Urea Nitrogen 11 mg/dL (7-17); Calcium 9.5 mg/dL (8.4-10.2); Carbon Dioxide 25 mmol/L (22-30); Chloride 105 mmol/L (98-107); Glucose 97 mg/dL (74-99); Magnesium 1.8 mg/dL (1.6-2.3); Potassium 4.4 mmol/L (3.5-5.1); Sodium 138 mmol/L (137-145); Total Bilirubin 0.5 mg/dL (0.2-1.3); Total Protein 7.3 g/dL (6.3-8.2)
[2018-07-06 11:00] LABS: D-Dimer 0.42 mg/L FEU (<0.60); INR 0.9 (<1.2); Partial Thromboplastin Time 22.4 sec (22.0-30.0); Prothrombin Time 9.7 sec (9.0-12.0)
[2018-07-06 11:04] LABS: Basophils % (A) 0 %; Eosinophils # (A) 0.1 k/uL (0-0.7); Eosinophils % (A) 2 %; HCT 38.1 % (34.0-46.0); HGB 12.7 gm/dL (11.4-16.0); Lymphocytes # (A) 1.7 k/uL (1.0-4.8); Lymphocytes % (A) 25 %; MCH 28.1 pg (25.0-35.0); MCHC 33.2 g/dL (31.0-37.0); MCV 84.6 fL (80.0-100.0); Mean Platelet Volume 6.9; Monocytes # (A) 0.3 k/uL (0-1.0); Monocytes % (A) 4 %; Neutrophils # (A) 4.4 k/uL (1.3-7.7); Neutrophils % (A) 68 %; Platelet Count 271 k/uL (150-450); RDW 14.1 % (11.5-15.5); WBC 6.6 k/uL (3.8-10.6)
--- NOTE | 2018-07-06 11:16 | CT ---
EXAMINATION TYPE: CT brain wo con DATE OF EXAM: 07/06/2018 COMPARISON: None HISTORY: Migraine CT DLP: 1099.4 mGycm. Automated Exposure Control for Dose Reduction was Utilized. TECHNIQUE: CT scan of the head is performed without contrast. FINDINGS: There is no acute intracranial hemorrhage, mass effect, or midline shift identified. The ventricles and sulci are within normal limits in size. The globes are intact and the visualized sin uses are clear. IMPRESSION: No acute intracranial hemorrhage, mass effect, or midline shift is seen.
--- NOTE | 2018-07-06 11:17 | XR ---
EXAMINATION TYPE: XR chest 2V DATE OF EXAM: 07/06/2018 COMPARISON: NONE HISTORY: History of hypertension with chest pain. TECHNIQUE: Frontal and lateral views of the chest are obtained. FINDINGS: There is no focal air space opacity, pleural effusion, or pneumothorax seen. The cardiac silhouette size is within normal limits. The osseous structures are intact. IMPRESSION: No acute cardiopulmonary process.
[2018-07-06] MEDS ORDERED: KETOROLAC 60 MG/2 ML VIAL IVP STA (11:58)
[2018-07-06 12:37] VITALS: BP 140/70; PULSE 73; RESP 16; TEMP 98.2
== END 2018-07-06 12:35 | disposition home or self-care (01) ==
LOC: EC 09:40
DX: I10 Essential (primary) hypertension (principal); R51 Headache; F32.9 Major depressive disorder, single episode, unspecified; Z79.3 Long term (current) use of hormonal contraceptives; Z79.899 Other long term (current) drug therapy; Z91.013 Allergy to seafood
CPT/HCPCS: 36415; 93005; 85379; 80053; 83735; 84484; 85025; 85610; 85730; 71046; 70450; 99285; 96374; 96375 ×2; J1200; J2550; J1885

== ENCOUNTER → 2019-05-31 | Outpatient (CLI) | payer BC ==
--- NOTE | 2019-06-01 12:07 | MM ---
Reason for exam: screening (asymptomatic). Baseline mammogram. History: Took hormonal contraceptives beginning at age 17. Physical Findings: Nurse did not find any significant physical abnormalities on exam. MG Screening Mammo w CAD Bilateral CC and MLO view(s) were taken. The breast tissue is heterogeneously dense. This may lower the sensitivity of mammography. Focal asymmetry two sites middle depth MLO view only. These results were verbally communicated with the patient and result sheet given to the patient on 05/31/19. ASSESSMENT: Incomplete: need additional imaging evaluation, BI-RAD 0 RECOMMENDATION: Special view mammogram of the left breast.
--- NOTE | 2019-06-01 12:08 | MM ---
Reason for exam: additional evaluation requested from abnormal screening. History: Took hormonal contraceptives beginning at age 17. Physical Findings: Breast exam preformed at baseline screening. MG Work Up Mamm w CAD LT LM and spot compression MLO view(s) were taken of the left breast. The breast tissue is heterogeneously dense. This may lower the sensitivity of mammography. Finding: There is a 5 mm mass in the upper quadrant of the left breast. These results were verbally communicated with the patient and result sheet given to the patient on 05/31/19. ASSESSMENT: Incomplete: need additional imaging evaluation, BI-RAD 0 RECOMMENDATION: Ultrasound of the left breast.
--- NOTE | 2019-06-01 12:09 | USB ---
Reason for exam: additional evaluation requested from abnormal screening. History: Took hormonal contraceptives beginning at age 17. US Breast Workup Limited LT Left limited breast ultrasound including focal area of concern, retroareolar and axilla demonstrates no cystic or solid lesion seen. These results were verbally communicated with the patient and result sheet given to the patient on 05/31/19. ASSESSMENT: Probably benign, BI-RAD 3 RECOMMENDATION: Follow-up diagnostic mammogram of the left breast in 6 months.
== END | disposition home or self-care (01) ==
LOC: RADMAMWWP 14:54
PROVIDERS: ATTEND Family Medicine
DX: Z12.31 Encounter for screening mammogram for malignant neoplasm of breast (principal); R92.8 Other abnormal and inconclusive findings on diagnostic imaging of breast
CPT/HCPCS: 77065; 77067

== ENCOUNTER → 2020-01-11 | Outpatient (CLI) | payer BC ==
[2020-01-11 16:47] LABS: HCT 31.8 % (34.0-46.0); HGB 10.3 gm/dL (11.4-16.0); MCHC 32.3 g/dL (31.0-37.0); MCV 83.8 fL (80.0-100.0); Mean Platelet Volume 7.7; Platelet Count 282 k/uL (150-450); RBC 3.79 m/uL (3.80-5.40); RDW 14.8 % (11.5-15.5)
[2020-01-12 01:02] LABS: HCG,Quantitative Serum <2.0 mIU/mL
== END | disposition home or self-care (01) ==
LOC: LABWHC1 01-10 12:02
PROVIDERS: ATTEND Obstetrics & Gynecology
DX: N93.9 Abnormal uterine and vaginal bleeding, unspecified (principal); R53.83 Other fatigue; R00.2 Palpitations; R63.5 Abnormal weight gain
CPT/HCPCS: 36415; 84439; 84443; 84702; 85027

== ENCOUNTER 2020-08-09 14:18 | Emergency (ER) | payer BC ==
[2020-08-09 14:28] VITALS: TEMP 98
[2020-08-09] MEDS ORDERED: METOCLOPRAMIDE 5 MG/ML 2 ML VIAL IVP STA (14:58)
[2020-08-09] MEDS ORDERED: SODIUM CHLORIDE 0.9% 1,000 ML IV STA (14:58)
[2020-08-09] MEDS ORDERED: LORazepam 2 MG/ML INJ IV STA (14:59)
[2020-08-09] MEDS ORDERED: diphenhydrAMINE 50 MG/ML 1 ML VIAL IVP STA (14:59)
[2020-08-09] MEDS ORDERED: SPIRONOLACTONE 25 MG TAB PO STA (15:05)
--- NOTE | 2020-08-09 15:05 | ED ---
General Adult HPI - General Chief complaint: Dizziness Stated complaint: Hypertension Time Seen by Provider: 08/09/20 14:34 Source: EMS Mode of arrival: EMS Limitations: no limitations - History of Present Illness Initial comments: 35-year-old female with a past medical history of migraine presents to the emergency department for a chief of lightheadedness. Patient reports that this morning around 2:30 AM she woke up with a migraine headache. States it started to resolve around 5:30 AM and so she went to work. However today at work she started to get lightheaded. Patient states that this lasted for about an hour and then she decided to come be evaluated. States she is very anxious and has a history of anxiety. Patient states her lightheadedness has improved significantly at this point. Patient denies any cardiac history. Denies any associated chest pain or shortness of breath. She reports she takes spironolactone for blood pressure however did not take it today. Patient has no other complaints at this time including shortness of breath, chest pain, abdominal pain, nausea or vomiting, headache, or visual changes. - Related Data Home Medications Medication Instructions Recorded Confirmed Aspirin/Acetaminophen/Caffeine 1 tab PO BID PRN 07/06/18 08/09/20 [Excedrin Migraine Caplet] Citalopram Hydrobromide [CeleXA] 40 mg PO DAILY 07/06/18 08/09/20 Inulin/Chromium Picolinate [Fiber 1 tab PO DAILY 08/09/20 08/09/20 Gummies Chew] Liraglutide [Victoza 2-César] 1.2 mg SQ DAILY 08/09/20 08/09/20 Melatonin Gummies ([place] Strength 1 tab PO HS PRN 08/09/20 08/09/20 Spironolactone [Aldactone] 100 mg PO DAILY 08/09/20 08/09/20 Allergies Allergy/AdvReac Type Severity Reaction Status Date / Time shellfish derived [Shellfish] Allergy Severe Rash/Hives Verified 08/09/20 15:51 Review of Systems ROS Statement: Those systems with pertinent positive or pertinent negative responses have been documented in the HPI. ROS Other: All systems not noted in ROS Statement are negative. Past Medical History Past Medical History: No Reported History Additional Past Medical History / Comment(s): migraines History of Any Multi-Drug Resistant Organisms: None Reported Past Surgical History: No Surgical Hx Reported Past Psychological History: Depression Smoking Status: Never smoker Past Alcohol Use History: None Reported Past Drug Use History: None Reported - Past Family History Father Family Medical History: Hypertension General Exam Limitations: no limitations General appearance: alert, in no apparent distress Head exam: Present: atraumatic, normocephalic, normal inspection Eye exam: Present: normal appearance, PERRL, EOMI. Absent: scleral icterus, conjunctival injection, periorbital swelling ENT exam: Present: normal exam, mucous membranes moist Neck exam: Present: normal inspection, full ROM. Absent: tenderness Respiratory exam: Present: normal lung sounds bilaterally. Absent: respiratory distress, wheezes Cardiovascular Exam: Present: regular rate, normal rhythm, normal heart sounds. Absent: systolic murmur, diastolic murmur, rubs, gallop, clicks GI/Abdominal exam: Present: soft, normal bowel sounds. Absent: distended, tenderness, guarding, rebound, rigid Course Vital Signs 08/09/20 08/09/20 14:25 15:32 Temperature 98.0 F Pulse Rate 89 87 Respiratory 20 16 Rate Blood Pressure 172/64 149/86 O2 Sat by Pulse 98 99 Oximetry EKG Findings - EKG Comments: EKG Findings:: Normal sinus rhythm, ventricular rate 68, TX interval 180, QTC 438 Medical Decision Making - Medical Decision Making Vitals are stable. CBC CMP unremarkable. Urinalysis negative. HCG negative. EKG revealed a normal sinus rhythm, nonischemic. Troponin negative. Chest x- ray shows no acute process. CT brain shows no acute intracranial process. Patient was given a liter of fluid and reevaluated. Condition is feeling much better. No longer lightheaded. No longer anxious. Patient will be discharged home to follow up with primary care. She'll return here for any worsening symptoms. - Lab Data Result diagrams: 08/09/20 15:06 08/09/20 15:06 Lab Results 08/09/20 08/09/20 08/09/20 Range/Units 15:06 15:06 15:06 WBC 9.0 (3.8-10.6) k/uL RBC 4.62 (3.80-5.40) m/uL Hgb 12.5 (11.4-16.0) gm/dL Hct 37.1 (34.0-46.0) % MCV 80.4 (80.0-100.0) fL MCH 27.1 (25.0-35.0) pg MCHC 33.6 (31.0-37.0) g/dL RDW 15.0 (11.5-15.5) % Plt Count 290 (150-450) k/uL MPV 7.5 Neutrophils % 62 % Lymphocytes % 30 % Monocytes % 4 % Eosinophils % 2 % Basophils % 0 % Neutrophils # 5.6 (1.3-7.7) k/uL Lymphocytes # 2.7 (1.0-4.8) k/uL Monocytes # 0.3 (0-1.0) k/uL Eosinophils # 0.2 (0-0.7) k/uL Basophils # 0.0 (0-0.2) k/uL Sodium 134 L (137-145) mmol/L Potassium 4.2 (3.5-5.1) mmol/L Chloride 101 (98-107) mmol/L Carbon Dioxide 22 (22-30) mmol/L Anion Gap 11 mmol/L BUN 10 (7-17) mg/dL Creatinine 0.68 (0.52-1.04) mg/dL Est GFR (CKD-EPI)AfAm >90 (>60 ml/min/1.73 sqM) Est GFR (CKD-EPI)NonAf >90 (>60 ml/min/1.73 sqM) Glucose 111 H (74-99) mg/dL Calcium 9.2 (8.4-10.2) mg/dL Total Bilirubin 0.5 (0.2-1.3) mg/dL AST 31 (14-36) U/L ALT 22 (4-34) U/L Alkaline Phosphatase 77 (38-126) U/L Troponin I <0.012 (0.000-0.034) ng/mL Total Protein 7.6 (6.3-8.2) g/dL Albumin 4.5 (3.5-5.0) g/dL Urine Color Urine Appearance (Clear) Urine pH (5.0-8.0) Ur Specific [place] (1.001-1.035) Urine Protein (Negative) Urine Glucose (UA) (Negative) Urine Ketones (Negative) Urine Blood (Negative) Urine Nitrite (Negative) Urine Bilirubin (Negative) Urine Urobilinogen (<2.0) mg/dL Ur Leukocyte Esterase (Negative) Urine RBC (0-5) /hpf Urine WBC (0-5) /hpf Ur Squamous Epith Cells (0-4) /hpf Urine Bacteria (None) /hpf Urine Mucus (None) /hpf Urine HCG, Qual (Not Detectd) 08/09/20 08/09/20 Range/Units 15:32 15:32 WBC (3.8-10.6) k/uL RBC (3.80-5.40) m/uL Hgb (11.4-16.0) gm/dL Hct (34.0-46.0) % MCV (80.0-100.0) fL MCH (25.0-35.0) pg MCHC (31.0-37.0) g/dL RDW (11.5-15.5) % Plt Count (150-450) k/uL MPV Neutrophils % % Lymphocytes % % Monocytes % % Eosinophils % % Basophils % % Neutrophils # (1.3-7.7) k/uL Lymphocytes # (1.0-4.8) k/uL Monocytes # (0-1.0) k/uL Eosinophils # (0-0.7) k/uL Basophils # (0-0.2) k/uL Sodium (137-145) mmol/L Potassium (3.5-5.1) mmol/L Chloride (98-107) mmol/L Carbon Dioxide (22-30) mmol/L Anion Gap mmol/L BUN (7-17) mg/dL Creatinine (0.52-1.04) mg/dL Est GFR (CKD-EPI)AfAm (>60 ml/min/1.73 sqM) Est GFR (CKD-EPI)NonAf (>60 ml/min/1.73 sqM) Glucose (74-99) mg/dL Calcium (8.4-10.2) mg/dL Total Bilirubin (0.2-1.3) mg/dL AST (14-36) U/L ALT (4-34) U/L Alkaline Phosphatase (38-126) U/L Troponin I (0.000-0.034) ng/mL Total Protein (6.3-8.2) g/dL Albumin (3.5-5.0) g/dL Urine Color Light Yellow Urine Appearance Clear (Clear) Urine pH 6.0 (5.0-8.0) Ur Specific [place] 1.006 (1.001-1.035) Urine Protein Negative (Negative) Urine Glucose (UA) Negative (Negative) Urine Ketones Negative (Negative) Urine Blood Trace H (Negative) Urine Nitrite Negative (Negative) Urine Bilirubin Negative (Negative) Urine Urobilinogen <2.0 (<2.0) mg/dL Ur Leukocyte Esterase Negative (Negative) Urine RBC 1 (0-5) /hpf Urine WBC 3 (0-5) /hpf Ur Squamous Epith Cells 1 (0-4) /hpf Urine Bacteria Many H (None) /hpf Urine Mucus Rare H (None) /hpf Urine HCG, Qual Not Detected (Not Detectd) Disposition Clinical Impression: Near syncope Disposition: HOME SELF-CARE Condition: Good Instructions (If sedation given, give patient instructions): Near Syncope (ED) Additional Instructions: Please drink plenty of fluids. Follow-up with primary care in 1-2 days. Return to the emergency room for any worsening symptoms. Is patient prescribed a controlled substance at d/c from ED?: No Referrals: Queenie Hendrickson DO [Primary Care Provider] - 1-2 days Time of Disposition: 17:10
[2020-08-09 15:21] LABS: Basophils % (A) 0 %; Eosinophils # (A) 0.2 k/uL (0-0.7); Eosinophils % (A) 2 %; HCT 37.1 % (34.0-46.0); HGB 12.5 gm/dL (11.4-16.0); Lymphocytes # (A) 2.7 k/uL (1.0-4.8); Lymphocytes % (A) 30 %; MCH 27.1 pg (25.0-35.0); MCHC 33.6 g/dL (31.0-37.0); MCV 80.4 fL (80.0-100.0); Mean Platelet Volume 7.5; Monocytes # (A) 0.3 k/uL (0-1.0); Monocytes % (A) 4 %; Neutrophils # (A) 5.6 k/uL (1.3-7.7); Neutrophils % (A) 62 %; Platelet Count 290 k/uL (150-450); RBC 4.62 m/uL (3.80-5.40)
[2020-08-09 15:32] LABS: ALT 22 U/L (4-34); AST 31 U/L (14-36); African American GFR (CKD) >90 (>60 ml/min/1.73 sqM); Albumin 4.5 g/dL (3.5-5.0); Alkaline Phosphatase 77 U/L (38-126); Anion Gap 11 mmol/L; Blood Urea Nitrogen 10 mg/dL (7-17); Calcium 9.2 mg/dL (8.4-10.2); Carbon Dioxide 22 mmol/L (22-30); Chloride 101 mmol/L (98-107); Glucose 111 mg/dL (74-99); Non-African American GFR(CKD) >90 (>60 ml/min/1.73 sqM); Potassium 4.2 mmol/L (3.5-5.1); Sodium 134 mmol/L (137-145); Total Bilirubin 0.5 mg/dL (0.2-1.3); Total Protein 7.6 g/dL (6.3-8.2)
[2020-08-09 15:34] VITALS: RESP 16
--- NOTE | 2020-08-09 15:47 | CT ---
4. EXAMINATION TYPE: CT brain wo con DATE OF EXAM: 08/09/2020 COMPARISON: None HISTORY: Migraine CT DLP: 1120.[address] of the brain was performed. The ventricles, basal cisterns and sulci overlying the cerebral convexities demonstrate a normal appe arance. There is no evidence for intracranial hemorrhage or sulcal effacement. No mass effects are seen. Osseous calvarium is intact. If symptoms persist consider MRI as clinically warranted. IMPRESSION: 1. No acute intracranial process is seen at this time.
--- NOTE | 2020-08-09 15:57 | XR ---
EXAMINATION TYPE: XR chest 1V portable DATE OF EXAM: 08/09/2020 COMPARISON: 07/06/2018 HISTORY: Chest pain TECHNIQUE: Single frontal view of the chest is obtained. FINDINGS: There is no focal air space opacity, pleural effusion, or pneumothorax seen. The cardiac silhouette size is within normal limits. The osseous structures are intact. IMPRESSION: 1. No acute process.
[2020-08-09 16:28] LABS: Appearance,Urine Clear (Clear); Bacteria,Urine Many /hpf; Bilirubin,Urine Negative (Negative); Blood,Urine Trace (Negative); Color,Urine Light Yellow; Glucose,Urine (UA) Negative (Negative); Ketones,Urine Negative (Negative); Leukocyte Esterase,Urine Negative (Negative); Mucus,Urine Rare /hpf; Nitrite,Urine Negative (Negative); Protein,Urine Negative (Negative); RBC,Urine 1 /hpf (0-5); Specific Gravity,Urine 1.006 (1.001-1.035); Squamous Epithelial Cell,Urine 1 /hpf (0-4); Urobilinogen,Urine <2.0 mg/dL (<2.0); WBC,Urine 3 /hpf (0-5)
[2020-08-09 17:20] VITALS: BP 149/79; PULSE 89
== END 2020-08-09 17:20 | disposition home or self-care (01) ==
LOC: EC 14:18
DX: R55 Syncope and collapse (principal); F32.9 Major depressive disorder, single episode, unspecified; I10 Essential (primary) hypertension; F41.9 Anxiety disorder, unspecified
CPT/HCPCS: 36415; 93005; 80053; 84484; 85025; 81001; 81025; 71045; 70450; 99284; 96374; 96375; 96361; J2060; J1200; J2765

== ENCOUNTER → 2021-02-18 | Outpatient (CLI) | payer BC ==
[2021-02-18 17:01] LABS: African American GFR (CKD) 124.3 (60.0-200.0); Albumin 4.3 g/dL (3.8-4.9); Albumin/Globulin Ratio 1.8 (1.60-3.17); Anion Gap 14.4 mmol/L (4.00-12.00); BUN/Creat Ratio 20.11 Ratio (12.00-20.00); Blood Urea Nitrogen 14.7 mg/dL (9.0-27.0); Calcium 9.2 mg/dL (8.7-10.3); Carbon Dioxide 20.1 mmol/L (21.6-31.8); Chol/HDL Ratio 3.56 Ratio; Globulin 2.4 g/dL (1.6-3.3); HDL Cholesterol 44.9 mg/dL (40.00-60.00); LDL Cholesterol,Calculated 93.7 mg/dL (0.0-131.0); Non-African American GFR(CKD) 107.3 (60.0-200.0); Potassium 4.8 mmol/L (3.5-5.5); Total Bilirubin 0.3 mg/dL (0.30-1.20); Total Protein 6.6 g/dL (6.2-8.2); VLDL Calculation 21.4 mg/dL (5.00-40.00)
[2021-02-18 20:35] LABS: HCT 39.1 % (37.2-46.3); HGB 12.1 g/dL (12.0-15.0); MCH 26.5 pg (27.0-32.0); MCHC 30.9 g/dL (32.0-37.0); MCV 85.7 fL (80.0-97.0); Mean Platelet Volume 11.1 fL (9.5-12.2); Platelet Count 297 X 10*3/uL (140-440); RBC 4.56 X 10*6/uL (4.10-5.20); RDW 14.3 % (11.5-14.5); WBC 7.21 X 10*3/uL (4.50-10.00)
== END | disposition home or self-care (01) ==
LOC: LABWHC1 08:22
PROVIDERS: ATTEND Family Medicine
DX: E28.2 Polycystic ovarian syndrome (principal); F34.1 Dysthymic disorder; R73.01 Impaired fasting glucose; I25.10 Atherosclerotic heart disease of native coronary artery without angina pectoris
CPT/HCPCS: 36415; 80053; 80061; 83036; 84443; 85027

== ENCOUNTER 2021-04-10 12:41 | Emergency (ER) | payer BC ==
[2021-04-10 13:17] VITALS: BP 164/94; PULSE 72; RESP 19; TEMP 98
--- NOTE | 2021-04-10 14:11 | ED ---
Headache HPI - General Chief Complaint: Headache Stated Complaint: Covid exposure/symptoms Time Seen by Provider: 04/10/21 14:03 Source: RN notes reviewed Mode of arrival: ambulatory Limitations: no limitations - History of Present Illness Initial Comments: 35-year-old female presents emergency Department with chief complaint of COVID- 19. Patient states that she was exposed has mild symptoms denies any chest pain shortness of breath states she has body aches, cough congestion no GI symptoms - Related Data Home Medications Medication Instructions Recorded Confirmed Aspirin/Acetaminophen/Caffeine 1 tab PO BID PRN 07/06/18 08/09/20 [Excedrin Migraine Caplet] Citalopram Hydrobromide [CeleXA] 40 mg PO DAILY 07/06/18 08/09/20 Inulin/Chromium Picolinate [Fiber 1 tab PO DAILY 08/09/20 08/09/20 Gummies Chew] Liraglutide [Victoza 2-César] 1.2 mg SQ DAILY 08/09/20 08/09/20 Melatonin Gummies ([place] Strength 1 tab PO HS PRN 08/09/20 08/09/20 Spironolactone [Aldactone] 100 mg PO DAILY 08/09/20 08/09/20 Allergies Allergy/AdvReac Type Severity Reaction Status Date / Time shellfish derived [Shellfish] Allergy Severe Rash/Hives Verified 04/10/21 13:17 Review of Systems ROS Statement: Those systems with pertinent positive or pertinent negative responses have been documented in the HPI. ROS Other: All systems not noted in ROS Statement are negative. Past Medical History Past Medical History: No Reported History Additional Past Medical History / Comment(s): migraines History of Any Multi-Drug Resistant Organisms: None Reported Past Surgical History: No Surgical Hx Reported Past Psychological History: Depression Smoking Status: Never smoker Past Alcohol Use History: None Reported Past Drug Use History: None Reported - Past Family History Father Family Medical History: Hypertension General Exam Limitations: no limitations Course Vital Signs 04/10/21 13:13 Temperature 98.0 F Pulse Rate 72 Respiratory 19 Rate Blood Pressure 164/94 O2 Sat by Pulse 98 Oximetry Medical Decision Making - Lab Data Lab Results 04/10/21 Range/Units 13:19 Coronavirus (PCR) Not Detected (Not Detectd) Disposition Clinical Impression: Encounter for laboratory testing for COVID-19 virus Disposition: HOME SELF-CARE Condition: Stable Additional Instructions: Please return to the Emergency Department if symptoms worsen or any other concerns. Is patient prescribed a controlled substance at d/c from ED?: No Referrals: Queenie Hendrickson DO [Primary Care Provider] - 1-2 days Time of Disposition: 14:11
[2021-04-10] MEDS ORDERED: KETOROLAC 30 MG/ML 1 ML VIAL IM STA (14:20)
[2021-04-10] MEDS ORDERED: ONDANSETRON ODT 4 MG TAB PO STA (14:20)
[2021-04-10] MEDS ORDERED: diphenhydrAMINE 50 MG CAP PO STA (14:20)
== END 2021-04-10 14:49 | disposition home or self-care (01) ==
LOC: EC 12:41
DX: Z20.822 Contact with and (suspected) exposure to COVID-19 (principal); G43.909 Migraine, unspecified, not intractable, without status migrainosus; F32.A Depression, unspecified
CPT/HCPCS: 99284; 96372; 87635; J1885

== ENCOUNTER → 2021-05-17 | Outpatient (CLI) | payer BC ==
--- NOTE | 2021-05-20 12:27 | MM ---
Reason for exam: screening (asymptomatic). Last mammogram was performed 2 years ago. History: Patient is nulliparous. Took hormonal contraceptives beginning at age 17. Physical Findings: A clinical breast exam by your physician is recommended on an annual basis and results should be correlated with mammographic findings. MG Screening Mammo w CAD Bilateral CC, MLO, and XCCL view(s) were taken. Prior study comparison: May 31, 2019, left breast MG work up mamm w CAD LT. May 31, 2019, bilateral MG screening mammo w CAD. Finding: There is a 6 mm equal density (isodense) mass in the upper inner quadrant of the right breast. ASSESSMENT: Incomplete: need additional imaging evaluation, BI-RAD 0 RECOMMENDATION: Special view mammogram of the right breast. If lesion persists on supplemental views, image directed ultrasound is recommended. [facility] will attempt to contact patient to return for supplemental views and ultrasound if indicated.
== END | disposition home or self-care (01) ==
LOC: RADMAMWWP 16:31
PROVIDERS: ATTEND Obstetrics & Gynecology
DX: Z12.31 Encounter for screening mammogram for malignant neoplasm of breast (principal)
CPT/HCPCS: 77067

== ENCOUNTER → 2021-06-11 | Outpatient (CLI) | payer BC ==
--- NOTE | 2021-06-11 10:57 | MM ---
Reason for exam: additional evaluation requested from abnormal screening. Last mammogram was performed 1 month ago. History: Patient is nulliparous. Took hormonal contraceptives beginning at age 17. Physical Findings: Nurse did not find any significant physical abnormalities on exam. MG Work Up Mamm w CAD RT Spot compression CC, spot compression MLO, and LM view(s) were taken of the right breast. Prior study comparison: May 17, 2021, bilateral MG screening mammo w CAD. Finding: There are multiple, small, under 7mm indistinct round masses in the right breast. These results were verbally communicated with the patient and result sheet given to the patient on 06/11/21. ASSESSMENT: Incomplete: need additional imaging evaluation, BI-RAD 0 RECOMMENDATION: Ultrasound of the right breast.
--- NOTE | 2021-06-11 11:00 | USB ---
Reason for exam: additional evaluation requested from abnormal screening. History: Patient is nulliparous. Took hormonal contraceptives beginning at age 17. US Breast Workup RT Right complete breast ultrasound includes all four quadrants, the retroareolar region and axilla. Finding demonstrates a 0.3 x 0.2 x 0.2cm oval, cystic lesion at 2 o'clock, a 1.1 x 0.7 x 0.3cm oval, cystic lesion at 4 o'clock and a 0.7 x 0.5 x 0.3cm oval lymph node at 5 o'clock. Favor overall fibrocystic change. These results were verbally communicated with the patient and result sheet given to the patient on 06/11/21. ASSESSMENT: Probably benign, BI-RAD 3 RECOMMENDATION: Follow-up diagnostic mammogram and ultrasound of the right breast in 6 months.
== END | disposition home or self-care (01) ==
LOC: RADMAMWWP 09:00
PROVIDERS: ATTEND Obstetrics & Gynecology
DX: R92.8 Other abnormal and inconclusive findings on diagnostic imaging of breast (principal)
CPT/HCPCS: 77065

== ENCOUNTER → 2024-10-20 | Outpatient (CLI) | payer BC ==
--- NOTE | 2024-10-20 09:37 | US ---
EXAMINATION TYPE: US kidneys/renal and bladder DATE OF EXAM: 10/20/2024 COMPARISON: CT 09/28/2016 CLINICAL INDICATION: Female, 39 years old with history of R10.9 UNSPECIFIED ABDOMINAL PAIN; Left side abdominal pain since April 2024. TECHNIQUE: Grayscale imaging of the bilateral kidneys and urinary bladder: FINDINGS: EXAM MEASUREMENTS: Right Kidney: 11.9 x 5.2 x 5.6 cm Left Kidney: 12.0 x 5.9 x 5.3 cm Right Kidney: No hydronephrosis or masses seen Left Kidney: No hydronephrosis or masses seen Bladder: wnl Bilateral Jets seen: Left seen Incidental finding: two cystic appearing masses in the midline pelvis, one measuring 4.9 x 5.0 x 3 .8 cm, the other measuring 4.2 x 3.4 x 3.7 cm. ?ovarian cysts on right vs left ovary or other? There is no evidence for hydronephrosis at this point in time. No nephrolithiasis is seen. No leonie s are identified. The urinary bladder is anechoic. IMPRESSION: No evidence for acute process. Pelvic cystic lesion possibly an ovarian cyst measuring up to 5.0 cm near the bladder. Further evalua tion with pelvic MRI recommended with IV contrast. This predisposes the patient to ovarian torsion. [facility], , 10/20/2024 9:34 AM
== END | disposition home or self-care (01) ==
LOC: RADUSWWP 08:36
PROVIDERS: ATTEND Family Medicine
DX: R10.9 Unspecified abdominal pain (principal); R19.09 Other intra-abdominal and pelvic swelling, mass and lump
CPT/HCPCS: 76770